=== PATIENT | female | born 1940 | race Caucasian/White ===

== ENCOUNTER 2020-01-08 07:32 | Outpatient (CLI) | payer MEDICARE, SELFPAY ==
--- NOTE | ~2020-01-08 | DEXA_ITS ---
BMD(1) Young-Adult(2) Age-Matched(3) Region (g/cm2) T-score Z-score WHO Classification L1 0.836 -2.5 -0.8 Osteoporosis L2 0.816 -3.3 -1.6 Osteoporosis L3 0.894 -2.6 -0.9 Osteoporosis L4 0.797 -3.3 -1.6 Osteoporosis L1-L4 0.833 -2.9 -1.2 Osteoporosis Trend: L1-L4 Change vs Change vs Measured Age BMD(1) Baseline Previous Date [age]) (g/cm2) (%) (%) 01/08/2020 [age] 0[age]833 baseline - 1 - Statistically 68% of repeat scans fall within 1SD (+- 0.010 g/cm2 for AP Spine L1-L4) 2 - [place] (Combined NHANES (ages 20-30) / [employer] (ages 20-40)) AP Spine Reference Population (v112) 3 - Matched for Age, Weight (females 25-100 kg), Ethnic 11 - World Health Organization - Definition of Osteoporosis and Osteopenia for Women: Normal = T-score at or above -1.0 SD; Osteopenia = T-score between -1.0 and -2.5 SD; Osteoporosis = T-score at or below -2.5 SD; (WHO definitions only apply when a young healthy Women reference database is used to determine T-scores.) Printed: 01/08/2020 8:12:34 AM (13.60)76:3.00:50.00:12.0 0.00:9.84 0.60x1.05 21.9:%Fat=40.6% 0.00:0.00 0.00:0.00 Filename: [id number] Scan Mode: Standard;OneScan 37.0 [employer] [id number] BMD(1) Young-Adult(2,7) Age-Matched(3) Region (g/cm2) T-score Z-score WHO Classification Neck Left 0.541 -3.6 -1.6 Osteoporosis Right 0.718 -2.3 -0.3 Osteopenia Mean 0.629 -2.9 -0.9 Osteoporosis Difference 0.177 1.3 1.3 - Total Left 0.723 -2.3 -0.4 Osteopenia Right 0.799 -1.7 0.2 Osteopenia Mean 0.761 -2.0 -0.1 Osteopenia Difference 0.076 0.6 0.6 - Hip [place] Length Comparison (mm) (Right = 97.8 mm) (Mean = 102.1 mm) (Left = 101.3 mm) Trend: Total Mean Change vs Change vs Measured Age BMD(1) Baseline Previous Date [age]) (g/cm2) (%) (%) 01/08/2020 79.1 0[age]761 baseline - 1 - Statistically 68% of repeat scans fall within 1SD (+- 0.010 g/cm2 for DualFemur Total) 2 - [place] (Combined NHANES (ages 20-30) / [employer] (ages 20-40)) Femur Reference Population (v112) 3 - Matched for Age, Weight (females 25-100 kg), Ethnic 7 - [employer]em[employer] Total T-score difference is 0.6. Asymmetry is Mild. 11 - World Health Organization - Definition of Osteoporosis and Osteopenia for Women: Normal = T-score at or above -1.0 SD; Osteopenia = T-score between -1.0 and -2.5 SD; Osteoporosis = T-score at or below -2.5 SD; (WHO definitions only apply when a young healthy Women reference database is used to determine T-scores.) Printed: 01/08/2020 8:12:35 AM (13.60); Filename: [id number]; Right Femur; 16.8:%Fat=32.7%; Neck Angle (deg)= 59; Scan Mode: Standard 37.0 uGy; Left Femur; 17.4:%Fat=35.4%; Neck Angle (deg)= 69; Scan Mode: Standard 37.0 uGy Tyros [id number] Dear Lico Miller, Your patient Roopa Aguilera completed a BMD test on 01/08/2020 using the Tyros DXA System (analysis version: 13.60) manufactured by [employer]. The following summarizes the results of our evaluation. PATIENT BIOGRAPHICAL: Name: Roopa Aguilera Date: 1940 Height: 61.0 in. Gender: Female Exam Date: 01/08/2020 Weight: 150.0 lbs. I
== END 2020-01-08 07:33 | disposition home or self-care (01) ==
LOC: CHSIMG 07:39
PROVIDERS: PCP Family Medicine; Visit Provider Family Medicine
DX: Z78.0 Asymptomatic menopausal state (principal)
CPT/HCPCS: 77080